=== PATIENT | male | born 1990 | race Caucasian/White ===

== ENCOUNTER → 2018-05-19 | Outpatient (CLI) | payer MEDICAID | LOC: M OUTALCOH 10:30 | PROVIDERS: ATTEND Psychiatry & Neurology Psychiatry | DX: Z13.89 Encounter for screening for other disorder (principal); F12.10 Cannabis abuse, uncomplicated ==

== ENCOUNTER 2018-06-11 12:52 | Outpatient (RCR) | payer MEDICAID | END 2018-06-13 | LOC: M OUTALCOH 12:52 | PROVIDERS: ATTEND Psychiatry & Neurology Psychiatry | DX: F12.20 Cannabis dependence, uncomplicated (principal); F17.200 Nicotine dependence, unspecified, uncomplicated ==

== ENCOUNTER 2018-06-18 13:44 | Outpatient (RCR) | payer MEDICAID | END 2018-07-13 | LOC: M OUTALCOH 13:44 | PROVIDERS: ATTEND Psychiatry & Neurology Psychiatry | DX: F12.20 Cannabis dependence, uncomplicated (principal); F17.200 Nicotine dependence, unspecified, uncomplicated ==

== ENCOUNTER → 2018-09-24 | Outpatient (CLI) | payer OTHER ==
[2018-09-24 12:21] LABS: BASO # 0.1 10^3/uL (0.0-0.2); BASO % 1.2 % (0.0-1.0); EOS # 0.2 10^3/uL (0.0-0.50); EOS % 2.4 % (0.0-3.0); HEMATOCRIT 44.3 % (42.0-52.0); HEMOGLOBIN 15.4 g/dl (13.5-17.5); LYMPH # 2.8 10^3/uL (1.5-6.5); LYMPH % 41.8 % (24.0-44.0); MEAN CORPUSCULAR HEMOGLOBIN 31.3 pg (27.0-33.0); MEAN CORPUSCULAR HGB CONC 34.8 g/dl (32.0-36.5); MONO # 0.6 10^3/uL (0.0-0.8); MONO % 8.5 % (0.0-5.0); NEUTROPHILS # 3.1 10^3/uL (1.8-7.7); NEUTROPHILS % 45.8 % (36.0-66.0); PLATELET COUNT, AUTOMATED 321 10^3/uL (150-450); RED BLOOD COUNT 4.92 10^6/uL (4.30-6.10); WHITE BLOOD COUNT 6.7 10^3/uL (4.0-10.0)
[2018-09-24 12:58] LABS: ALT/SGPT 55 U/L (12-78); BILIRUBIN,TOTAL 0.9 MG/DL (0.2-1.0); BLOOD UREA NITROGEN 16 MG/DL (7-18); CALCIUM LEVEL 8.8 MG/DL (8.5-10.1); CARBON DIOXIDE LEVEL 31 MEQ/L (21-32); CHLORIDE LEVEL 105 MEQ/L (98-107); CHOLESTEROL LEVEL 216 MG/DL (<200); CHOLESTEROL RISK RATIO 2.805 (<5); CREATININE FOR GFR 1.04 MG/DL (0.70-1.30); FREE T4 0.79 NG/DL (0.76-1.46); GLOMERULAR FILTRATION RATE > 60.0 (>60); GLUCOSE, FASTING 86 MG/DL (70-100); HDL CHOLESTEROL 77 MG/DL (>40); LDL CHOLESTEROL 105 MG/DL (<100); NON-HDL-C 139 MG/DL; POTASSIUM SERUM 4.2 MEQ/L (3.5-5.1); SODIUM LEVEL 140 MEQ/L (136-145); TRIGLYCERIDES LEVEL 171 MG/DL (<150)
== END ==
LOC: M LAB 11:26
PROVIDERS: ATTEND Physician Assistant Medical
DX: J45.990 Exercise induced bronchospasm (principal); Z13.220 Encounter for screening for lipoid disorders; G47.10 Hypersomnia, unspecified

== ENCOUNTER 2018-12-06 19:52 | Emergency (ER) | payer OTHER ==
[~2018-12-06] VITALS: Ht 190.5 cm; Wt 111.4 kg
[2018-12-06 19:53] VITALS: BP 160/77
[2018-12-06] MEDS ORDERED: BUPR150T5 (20:21)
[2018-12-06] MEDS ORDERED: FLUO20CA19 (20:21)
[2018-12-06] MEDS ORDERED: PROP10TA56 (20:21)
[2018-12-06] MEDS ORDERED: PRAZ1CAP (20:21)
[2018-12-06] MEDS ORDERED: PRAZ2CAP (20:21)
== END 2018-12-06 20:45 | disposition left against medical advice (07) ==
LOC: M ED 19:52
DX: Z53.21 Procedure and treatment not carried out due to patient leaving prior to being seen by health care provider (principal)

== ENCOUNTER 2018-12-11 10:45 | Emergency (ER) | payer OTHER ==
[~2018-12-11] VITALS: Ht 190.5 cm; Wt 113.6 kg
[~2018-12-11 10:45] MED LIST: BUPR150T5; FLUO20CA19; PRAZ1CAP; PRAZ2CAP; PROP10TA56
[2018-12-11] MEDS ORDERED: PROP10TA56 PO (11:01)
[2018-12-11] MEDS ORDERED: LORA-674 PO (11:01)
[2018-12-11] MEDS ORDERED: ALBUTEROL SULFATE 2.5 MG/0.5 ML INH NEB SOLN NEB ONE (11:45)
[2018-12-11] MEDS ORDERED: IPRATROPIUM 0.5MG/ALBUTEROL 2.5MG INH SOL UD 3ML (DUONEB)(J7620) NEB ONE ×2 (13:15→14:00)
[2018-12-11] MEDS ORDERED: ADACEL/BOOSTRIX VACCINE (DIPHTH/PERTUSS/ACELL/TETANUS)0.5ML SYR (90715) IM ONE (13:15)
[2018-12-11] MEDS ORDERED: methylPREDNISolone INJ 125 MG/2 ML VIAL (J2930) IV ONE (14:00)
--- NOTE | 2018-12-11 14:05 | REP ---
CHEST PA AND LATERAL: 12/11/2018. Clinical history: Productive cough. Findings: No prior study. Two-view show the lungs well inflated without infiltrate, effusion, atelectasis or mass. Heart, mediastinal and hilar contours are normal. A few cuffed bronchi in the perihilar regions are noted that may reflect reactive airway disease or bronchitis. Aorta and airway unremarkable. Bones show no acute finding. No free air under the diaphragm. Impression: 1. Minor perihilar changes of bronchitis or reactive airway disease without dense consolidation or effusion. Electronically Signed by Yogesh Osei MD 12/11/2018 07:41 P
[2018-12-11] MEDS ORDERED: AZIT-12 PO (15:04)
[2018-12-11] MEDS ORDERED: PROAAER10 INH (15:05)
[2018-12-11] MEDS ORDERED: PRED20TA PO (15:10)
[2018-12-11] MEDS: MAG SULF 1GM/100ML (MAG RUN) 1 GM in IV 1 EA IV SCH ×2 (15:52→16:11)
[2018-12-11 17:00] VITALS: BP 155/74
[2018-12-16 10:07] LABS: BORDETELLA PARAPERTUSSIS PCR Negative (Negative); BORDETELLA PERTUSSIS BY PCR Negative (Negative)
== END 2018-12-11 17:13 | disposition home or self-care (01) ==
LOC: M ED 10:45
DX: J45.901 Unspecified asthma with (acute) exacerbation (principal); J06.9 Acute upper respiratory infection, unspecified; Z20.818 Contact with and (suspected) exposure to other bacterial communicable diseases; I10 Essential (primary) hypertension; F41.9 Anxiety disorder, unspecified; G47.30 Sleep apnea, unspecified; Z99.89 Dependence on other enabling machines and devices; Z79.899 Other long term (current) drug therapy; Z88.0 Allergy status to penicillin; F17.210 Nicotine dependence, cigarettes, uncomplicated
CPT/HCPCS: 71046; 87798; 90471; 90715; 94640; 96365; 96372; 96375; 99284; J2930; J3475

== ENCOUNTER → 2019-04-06 | Outpatient (CLI) | payer MEDICAID ==
[~2019-04-06] MED LIST changes: +AZIT-12 PO; +LORA-674 PO; +PRED20TA PO; +PROAAER10 INH; +PROP10TA56 PO
== END ==
LOC: M OUTALCOH 07:47
PROVIDERS: ATTEND Psychiatry & Neurology Addiction Medicine
DX: F14.20 Cocaine dependence, uncomplicated (principal); F12.20 Cannabis dependence, uncomplicated

== ENCOUNTER 2019-04-13 13:51 | Outpatient (RCR) | payer MEDICAID | END 2019-04-15 | LOC: M OUTALCOH 13:51 | PROVIDERS: ATTEND Psychiatry & Neurology Addiction Medicine | DX: F12.20 Cannabis dependence, uncomplicated (principal); F14.20 Cocaine dependence, uncomplicated; F17.200 Nicotine dependence, unspecified, uncomplicated ==

== ENCOUNTER 2019-05-10 10:00 | Outpatient (RCR) | payer MEDICAID ==
[~2019-05-10 10:00] MED LIST changes: -FLUO20CA19; +FLUO20CA22
== END 2019-05-14 ==
LOC: M OUTALCOH 10:00
PROVIDERS: ATTEND Psychiatry & Neurology Addiction Medicine
DX: F14.20 Cocaine dependence, uncomplicated (principal); F12.20 Cannabis dependence, uncomplicated; F17.200 Nicotine dependence, unspecified, uncomplicated

== ENCOUNTER → 2019-06-14 | Outpatient (RCR) | payer MEDICAID | LOC: M OUTALCOH 05-17 09:38 | PROVIDERS: ATTEND Psychiatry & Neurology Addiction Medicine | DX: F14.20 Cocaine dependence, uncomplicated (principal); F12.20 Cannabis dependence, uncomplicated; F17.200 Nicotine dependence, unspecified, uncomplicated ==

== ENCOUNTER 2019-07-11 14:00 | Outpatient (RCR) | payer MEDICAID | END 2019-07-14 | LOC: M OUTALCOH 14:00 | PROVIDERS: ATTEND Psychiatry & Neurology Addiction Medicine | DX: F12.20 Cannabis dependence, uncomplicated (principal); F14.20 Cocaine dependence, uncomplicated; F17.200 Nicotine dependence, unspecified, uncomplicated ==

== ENCOUNTER 2022-02-03 09:01 | Emergency (ER) | payer MEDICAID, OTHER ==
[~2022-02-03] VITALS: Ht 190.5 cm; Wt 112.4 kg
[2022-02-03 09:01] VITALS: BP 15/80
[~2022-02-03 09:01] MED LIST changes: +BUPR-71; -BUPR150T5
[2022-02-03] MEDS ORDERED: IBUP200C28 PO (09:14)
== END 2022-02-03 10:11 | disposition left against medical advice (07) ==
LOC: M ED 09:01
DX: Z53.21 Procedure and treatment not carried out due to patient leaving prior to being seen by health care provider (principal)

== ENCOUNTER 2022-09-29 13:44 | Emergency (ER) | payer OTHER ==
[~2022-09-29] VITALS: Ht 190.5 cm; Wt 107.9 kg
[~2022-09-29 13:44] MED LIST changes: +IBUP200C28 PO
[2022-09-29 13:46] VITALS: BP 137/74; TEMP 97; O2SAT 95
[2022-09-29] MEDS ORDERED: IBUPROFEN 600MG TAB PO ONE (15:45)
== END 2022-09-29 15:59 | disposition home or self-care (01) ==
LOC: M ED 13:44
DX: S70.11XA Contusion of right thigh, initial encounter (principal); W03.XXXA Other fall on same level due to collision with another person, initial encounter; Y92.838 Other recreation area as the place of occurrence of the external cause; Y93.11 Activity, swimming; I10 Essential (primary) hypertension; F17.200 Nicotine dependence, unspecified, uncomplicated; Z88.0 Allergy status to penicillin

== ENCOUNTER 2023-08-27 10:50 | Emergency (ER) | payer OTHER, SELFPAY ==
[~2023-08-27] VITALS: Ht 190.5 cm; Wt 108.9 kg
[~2023-08-27 10:50] MED LIST changes: +FLUO-365; -FLUO20CA22; +LORA-1041 PO; -LORA-674 PO
[2023-08-27] MEDS ORDERED: ISOVUE-370 76% 100ML VIAL As Ordered ONE (11:26)
[2023-08-27 11:35] LABS: VENOUS O2 SATURATION 90.1 % (60.0-80.0); VENOUS PARTIAL PRESSURE CO2 41.2 mmHg (38.0-50.0); VENOUS PARTIAL PRESSURE O2 54.3 mmHg (30.0-50.0); VENOUS PH 7.384 UNITS (7.330-7.430); VENOUS STANDARD HCO3 23.5 MMOL/L; VENOUS TOTAL CO2 25.3 MMOL/L (24.0-28.0)
[2023-08-27 11:46] LABS: BASO # 0.1 10^3/uL (0.0-0.2); BASO % 0.8 % (0.0-1.0); EOS # 0.1 10^3/uL (0.0-0.5); EOS % 1.2 % (0.0-3.0); HEMATOCRIT 42.7 % (42.0-52.0); LYMPH % 31.7 % (24.0-44.0); MEAN CORPUSCULAR HEMOGLOBIN 31.1 pg (27.0-33.0); MEAN CORPUSCULAR HGB CONC 35.1 g/dl (32.0-36.5); MEAN CORPUSCULAR VOLUME 88.4 fl (80.0-96.0); MONO # 0.6 10^3/uL (0.0-0.8); MONO % 5.9 % (2.0-8.0); NEUTROPHILS # 5.7 10^3/uL (1.5-8.5); NEUTROPHILS % 60.1 % (36.0-66.0); PLATELET COUNT, AUTOMATED 314 10^3/uL (150-450); RED BLOOD COUNT 4.83 10^6/uL (4.30-6.10); WHITE BLOOD COUNT 9.5 10^3/uL (4.0-10.0)
[2023-08-27] MEDS: ONDANSETRON 4MG 2ML VIAL IV ONE (11:46)
[2023-08-27] MEDS: MORPHINE 4 MG/ML 1ML VIAL IV PRN (11:47)
[2023-08-27 12:08] LABS: LIPASE 35 U/L (12-53)
[2023-08-27 12:10] LABS: ALBUMIN 4.2 G/DL (3.2-5.2); ALKALINE PHOSPHATASE 64 U/L (46-116); ALT/SGPT 33 U/L (7.0-40); AMYLASE 57 U/L (30-118); AST/SGOT 14 U/L (<34); BILIRUBIN,DIRECT 0.1 MG/DL (<0.4); BILIRUBIN,TOTAL 0.6 MG/DL (0.3-1.2); CK-MB VALUE MASS < 1.0 NG/ML (<3.6); TOTAL PROTEIN 6.8 G/DL (5.7-8.2)
[2023-08-27 12:13] LABS: CPK CREATINE PHOSPHOKINASE 129 U/L (46-171); MB/CK RELATIVE INDEX 0.77 (< OR =4)
[2023-08-27 12:35] LABS: INR 0.92; PARTIAL THROMBOPLASTIN TIME 27.8 SECONDS (24.8-34.2); PROTHROMBIN TIME 12.1 SECONDS (12.5-14.5)
[2023-08-27 12:40] LABS: APPEARANCE, URINE CLEAR (CLEAR); BACTERIA, URINE AUTO NEGATIVE (NEGATIVE); BILIRUBIN, URINE AUTO NEGATIVE (NEGATIVE); BLOOD, URINE BLOOD NEGATIVE (NEGATIVE); COLOR, URINE YELLOW (YELLOW); GLUCOSE, URINE (UA) AUTO NEGATIVE (NEGATIVE); KETONE, URINE AUTO NEGATIVE (NEGATIVE); LEUKOCYTE ESTERASE, URINE AUTO NEGATIVE (NEGATIVE); NITRITE, URINE AUTO NEGATIVE (NEGATIVE); PROTEIN, URINE AUTO NEGATIVE (NEGATIVE); RBC, URINE AUTO 0 /HPF (0-3); SPECIFIC GRAVITY URINE AUTO 1.038 (1.002-1.035); SQUAMOUS EPITHELIAL CELL UR AU 0 /HPF (0-6); UROBILINOGEN, URINE AUTO 0.2 mg/dL (0.0-2.0); WBC, URINE AUTO 0 /HPF (0-3)
[2023-08-27] MEDS: KETOROLAC 30 MG/ML 1ML VIAL IV ONE (12:59)
[2023-08-27] MEDS ORDERED: ALBU8.5H INH (13:15)
[2023-08-27 14:00] LABS: AMPHETAMINES LEVEL URINE NEGATIVE (NEGATIVE)
[2023-08-27 14:01] LABS: BARBITURATES URINE NEGATIVE (NEGATIVE); BENZODIAZEPINES URINE NEGATIVE (NEGATIVE); CANNABINOIDS URINE POSITIVE (NEGATIVE); COCAINE METABOLITE URINE NEGATIVE (NEGATIVE); METHADONE URINE NEGATIVE (NEGATIVE); OPIATES URINE POSITIVE (NEGATIVE); PHENCYCLIDINE URINE NEGATIVE (NEGATIVE)
[2023-08-27 15:01] VITALS: BP 139/72; TEMP 97; O2SAT 98
== END 2023-08-27 15:01 | disposition home or self-care (01) ==
LOC: M ED 10:50 → EDBD 10:50 → M ED 15:01
DX: S80.12XA Contusion of left lower leg, initial encounter (principal); S20.219A Contusion of unspecified front wall of thorax, initial encounter; W55.22XA Struck by cow, initial encounter; Y92.9 Unspecified place or not applicable; Y93.9 Activity, unspecified; Y99.9 Unspecified external cause status; R00.1 Bradycardia, unspecified; Z79.51 Long term (current) use of inhaled steroids; Z79.1 Long term (current) use of non-steroidal anti-inflammatories (NSAID)
CPT/HCPCS: 70450; 71045; 71260; 72125; 72170; 73590; 74177; 80047; 80076; 80307; 81001; 82150; 82550; 82553; 82803; 83605; 83690; 84484; 85025; 85610; 85730; 86850; 86900; 86901; 93005; 93041; 94760; 96374; 96375; 99285; J1885; J2405; Q9967

== ENCOUNTER → 2023-09-03 | Outpatient (CLI) | payer OTHER ==
[~2023-09-03] MED LIST changes: +ALBU8.5H INH
[2023-09-03 14:53] LABS: BASO # 0.1 10^3/uL (0.0-0.2); EOS # 0.2 10^3/uL (0.0-0.5); EOS % 2.8 % (0.0-3.0); HEMATOCRIT 44.8 % (42.0-52.0); HEMOGLOBIN 15.7 g/dl (13.5-17.5); LYMPH # 3.2 10^3/uL (1.5-5.0); LYMPH % 40.9 % (24.0-44.0); MEAN CORPUSCULAR HEMOGLOBIN 30.8 pg (27.0-33.0); MONO # 0.6 10^3/uL (0.0-0.8); MONO % 7.7 % (2.0-8.0); NEUTROPHILS # 3.7 10^3/uL (1.5-8.5); NEUTROPHILS % 47.2 % (36.0-66.0); PLATELET COUNT, AUTOMATED 317 10^3/uL (150-450); RED BLOOD COUNT 5.09 10^6/uL (4.30-6.10); WHITE BLOOD COUNT 7.9 10^3/uL (4.0-10.0)
[2023-09-03 15:32] LABS: ALBUMIN 4.1 G/DL (3.2-5.2); ALKALINE PHOSPHATASE 61 U/L (46-116); ALT/SGPT 43 U/L (7.0-40); AST/SGOT 17 U/L (<34); BILIRUBIN,TOTAL 1.1 MG/DL (0.3-1.2); BLOOD UREA NITROGEN 17 MG/DL (9-23); CALCIUM LEVEL 9.8 MG/DL (8.5-10.1); CARBON DIOXIDE LEVEL 27 MMOL/L (20-31); CHLORIDE LEVEL 105 MMOL/L (98-107); CK-MB VALUE MASS < 1.0 NG/ML (<3.6); CPK CREATINE PHOSPHOKINASE 156 U/L (46-171); CREATININE FOR GFR 0.88 MG/DL (0.70-1.30); GLOMERULAR FILTRATION RATE > 60.0 (>60); GLUCOSE, FASTING 90 MG/DL (60-100); MB/CK RELATIVE INDEX 0.64 (< OR =4); POTASSIUM SERUM 4.3 MMOL/L (3.5-5.1); SODIUM LEVEL 137 MMOL/L (136-145)
== END ==
LOC: M RAD 13:06
PROVIDERS: ATTEND Physician Assistant Medical
DX: S80.12XD Contusion of left lower leg, subsequent encounter (principal); R07.89 Other chest pain; M54.2 Cervicalgia; I49.8 Other specified cardiac arrhythmias; R42 Dizziness and giddiness

== ENCOUNTER → 2024-03-10 | Outpatient (REF) | payer OTHER | LOC: M LAB REF 16:27 | PROVIDERS: ATTEND Physician Assistant Medical | DX: B34.9 Viral infection, unspecified (principal) ==

== ENCOUNTER 2024-10-19 18:22 | Emergency (ER) | payer OTHER ==
[~2024-10-19] VITALS: Ht 190.5 cm; Wt 111.1 kg
[2024-10-19 18:26] VITALS: TEMP 97.1
[2024-10-19 19:37] LABS: BASO # 0.1 10^3/uL (0.0-0.2); BASO % 1.1 % (0.0-1.0); EOS # 0.1 10^3/uL (0.0-0.5); EOS % 2.3 % (0.0-3.0); LYMPH # 2.3 10^3/uL (1.5-5.0); LYMPH % 40.7 % (24.0-44.0); MONO # 0.9 10^3/uL (0.0-0.8); MONO % 15.9 % (2.0-8.0); NEUTROPHILS # 2.3 10^3/uL (1.5-8.5); NEUTROPHILS % 39.8 % (36.0-66.0); PLATELET COUNT, AUTOMATED 261 10^3/uL (150-450)
[2024-10-19 19:43] LABS: ERYTHROCYTE SEDIMENTATION RATE 7 mm/hr (0-15)
[2024-10-19 20:43] LABS: ALT/SGPT 46 U/L (7.0-40); AST/SGOT 29 U/L (<34); CALCIUM LEVEL 8.8 MG/DL (8.5-10.1); CARBON DIOXIDE LEVEL 26.9 MMOL/L (20-31); CHLORIDE LEVEL 107 MMOL/L (98-107); CK-MB VALUE MASS < 1.0 NG/ML (<3.6); CPK CREATINE PHOSPHOKINASE 97 U/L (46-171); CREATININE FOR GFR 0.95 MG/DL (0.70-1.30); GLOMERULAR FILTRATION RATE > 90.0 (>60); POTASSIUM SERUM 3.9 MMOL/L (3.5-5.1); SODIUM LEVEL 143 MMOL/L (136-145)
[2024-10-19 20:44] LABS: C REACTIVE PROTEIN QUANTITATIV 0.66 MG/DL (<1.0)
[2024-10-19] MEDS: NS (Normal Saline) 0.9% 1,000 ML IV ONE (20:59)
[2024-10-19] MEDS: diphenhydrAMINE 50 MG/ML VIAL IV STA (21:00)
[2024-10-19] MEDS: KETOROLAC 30 MG/ML 1 ML VIAL IV ONE (21:00)
[2024-10-19 22:30] VITALS: O2SAT 91
[2024-10-19 22:31] VITALS: BP 148/76
== END 2024-10-19 22:52 | disposition home or self-care (01) ==
LOC: M ED 18:22
DX: R51.9 Headache, unspecified (principal); I10 Essential (primary) hypertension; J45.909 Unspecified asthma, uncomplicated; F17.210 Nicotine dependence, cigarettes, uncomplicated; Z88.0 Allergy status to penicillin
CPT/HCPCS: 70450; 80053; 82550; 82553; 83605; 83690; 84484; 85025; 85652; 86140; 87486; 87581; 87633; 87798; 93005; 96374; 96375; 99284; J1100; J1200; J1885; J2765